=== PATIENT | female | born 2000 | race Caucasian/White ===

== ENCOUNTER 2020-01-14 20:37 | Emergency (ER) | payer OTHER, SELFPAY ==
[~2020-01-14] VITALS: Ht 160 cm; Wt 63.6 kg
[2020-01-14] MEDS ORDERED: birth control tab PO (20:43)
[2020-01-14] MEDS ORDERED: cefTRIAXone SOD 250MG VIAL (J0696 PER 250MG) IM ONE (22:15)
[2020-01-14] MEDS ORDERED: AZITHROMYCIN 250MG TABLET PO ONE (22:15)
[2020-01-14] MEDS ORDERED: DOXYCYCLINE HYCLATE 100MG TABLET PO ONE (22:15)
[2020-01-14] MEDS ORDERED: LIDOCAINE 1% SDV 5ML VIAL As Ordered ONE (22:23)
[2020-01-14] MEDS ORDERED: metroNIDAZOLE (FLAGYL) 500MG TABLET PO ONE (22:30)
[2020-01-14] MEDS ORDERED: DOXY100C37 PO (22:34)
[2020-01-14 23:53] LABS: CHLAMYDIA DNA AMPLIFICATION NEGATIVE (NEGATIVE); GC DNA AMPLIFICATION NEGATIVE (NEGATIVE)
[2020-01-15] VITALS: BP 133/76
[2020-01-16] MEDS ORDERED: CEFD1CAP8 PO (13:14)
[2020-01-16] MEDS ORDERED: NORC1TAB7 PO (13:14)
[2020-01-16] MEDS ORDERED: FLOM0.4C39 PO (13:14)
[2020-01-16] MEDS ORDERED: KETO10TAB PO (13:14)
== END 2020-01-15 00:04 | disposition home or self-care (01) ==
LOC: M ED 20:37
DX: N72 Inflammatory disease of cervix uteri (principal); Z79.3 Long term (current) use of hormonal contraceptives; Z79.899 Other long term (current) drug therapy
CPT/HCPCS: 81001; 87086; 87210; 87661; 96372; 99283; J0696

== ENCOUNTER 2020-01-16 10:09 | Emergency (ER) | payer OTHER ==
[~2020-01-16] VITALS: Ht 160 cm; Wt 68.5 kg
[~2020-01-16 10:09] MED LIST: DOXY100C37 PO; birth control tab PO
[2020-01-16] MEDS ORDERED: KETOROLAC 30 MG/ML 1ML VIAL IV ONE (11:15)
--- NOTE | 2020-01-16 11:48 | REPVR ---
PROCEDURE INFORMATION: Exam: CT Abdomen And Pelvis Without Contrast Exam date and time: 01/16/2020 11:29 AM Age: 19 years old Clinical indication: Abdominal pain; Additional info: Left flank pain, h/o stones TECHNIQUE: Imaging protocol: Computed tomography of the abdomen and pelvis without contrast. Radiation optimization: All CT scans at this facility use at least one of these dose optimization techniques: automated exposure control; mA and/or kV adjustment per patient size (includes targeted exams where dose is matched to clinical indication); or iterative reconstruction. COMPARISON: No relevant prior studies available. FINDINGS: Liver: The liver is slightly enlarged 174 mm. Gallbladder and bile ducts: Normal. No calcified stones. No ductal dilation. Pancreas: Normal. No ductal dilation. Spleen: Normal. No splenomegaly. Adrenals: Normal. No mass. Kidneys and ureters: Subtle areas of increased density are noted within the kidneys near the corticomedullary junctions. This raises the question possible renal tubular acidosis, medullary sponge kidney or a hypercalcemic state. There is no hydronephrosis on the right. There is mild to moderate hydronephrosis on the left. There is a stone noted at the left UVJ measuring 2.5 mm on image 201/126. Stomach and bowel: Unremarkable. No obstruction. No mucosal thickening. Appendix: The appendix is seen appears normal. Intraperitoneal space: Unremarkable. No free air. No significant fluid collection. Vasculature: Unremarkable. No abdominal aortic aneurysm. Lymph nodes: Small mesenteric lymph nodes are seen specifically in the right lower quadrant. Urinary bladder: Unremarkable as visualized. Reproductive: Unremarkable as visualized. Bones/joints: Unremarkable. No acute fracture. Soft tissues: Unremarkable. IMPRESSION: 1. Left UVJ stone with mild to moderate hydronephrosis. 2. Areas of increased density noted within both kidneys near the corticomedullary differentiation. Differential as above. Electronically signed by: Andrew Alexander On 01/16/2020 11:48:16 AM
[2020-01-16] MEDS ORDERED: MORPHINE 2 MG/ML 1ML VIAL (J2270) IV PRN (12:45)
[2020-01-16] MEDS ORDERED: TAMSULOSIN 0.4 MG CAP PO ONE (12:45)
[2020-01-16] MEDS ORDERED: CEFDINIR 300 MG CAP (OMNICEF) PO ONE (13:00)
[2020-01-16] MEDS ORDERED: CEFD1CAP8 PO (13:14)
[2020-01-16] MEDS ORDERED: FLOM0.4C39 PO (13:14)
[2020-01-16] MEDS ORDERED: NORC1TAB7 PO (13:14)
[2020-01-16] MEDS ORDERED: KETO10TAB PO (13:14)
[2020-01-16 13:33] VITALS: BP 112/62
== END 2020-01-16 13:34 | disposition home or self-care (01) ==
LOC: M ED 10:09
DX: N20.1 Calculus of ureter (principal); N13.30 Unspecified hydronephrosis
CPT/HCPCS: 74176; 80047; 81001; 84702; 87086; 96374; 96375; 99284; J1885; J2270

== ENCOUNTER 2021-01-09 15:08 | Emergency (ER) | payer OTHER ==
[~2021-01-09] VITALS: Ht 162.6 cm; Wt 63.0 kg
[~2021-01-09 15:08] MED LIST changes: +CEFD1CAP8 PO; -DOXY100C37 PO; +DOXY1CAP62 PO; +FLOM0.4C39 PO; +KETO10TAB PO; +NORC1TAB7 PO
[2021-01-09 16:39] LABS: BASO % 0.3 % (0.0-1.0); EOS # 0.1 10^3/uL (0.0-0.5); EOS % 0.6 % (0.0-3.0); HEMATOCRIT 41.1 % (36.0-47.0); HEMOGLOBIN 13.6 g/dl (12.0-15.5); MEAN CORPUSCULAR HEMOGLOBIN 29.6 pg (27.0-33.0); MEAN CORPUSCULAR HGB CONC 33.1 g/dl (32.0-36.5); MEAN CORPUSCULAR VOLUME 89.5 fl (80.0-96.0); MONO # 0.5 10^3/uL (0.0-0.8); MONO % 5.5 % (2.0-8.0); NEUTROPHILS # 6.2 10^3/uL (1.5-8.5); NEUTROPHILS % 70.3 % (36.0-66.0); PLATELET COUNT, AUTOMATED 315 10^3/uL (150-450); RED BLOOD COUNT 4.59 10^6/uL (4.00-5.40); WHITE BLOOD COUNT 8.8 10^3/uL (4.0-10.0)
[2021-01-09 17:10] LABS: BLOOD UREA NITROGEN 10 MG/DL (7-18); CARBON DIOXIDE LEVEL 28 MEQ/L (21-32); CHLORIDE LEVEL 108 MEQ/L (98-107); CREATININE FOR GFR 0.74 MG/DL (0.55-1.30); GLOMERULAR FILTRATION RATE > 60.0 (>60); GLUCOSE, FASTING 98 MG/DL (70-100); HCG, SERUM QUANTITATIVE 49 MIU/ML; POTASSIUM SERUM 4.1 MEQ/L (3.5-5.1); SODIUM LEVEL 139 MEQ/L (136-145)
--- NOTE | 2021-01-09 18:58 | REP ---
INDICATION: vaginal bleeding, 8-9 weeks COMPARISON: None. TECHNIQUE: Transabdominal and transvaginal 1st trimester obstetrical ultrasound with color Doppler evaluation FINDINGS: Anteverted uterus measures 8.4 x 4.1 x 5.2 cm. The endometrial complex measures 10 mm thickness. No intrauterine is identified. No pelvic fluid or adnexal mass lesion noted. Bilateral ovaries are normal. Right ovary measures 3.4 x 1.7 x 2.2 cm (RI 0.51). Left ovary measures 3.1 x 1.6 x 1.9 cm (RI 0.62). IMPRESSION: 1. No evidence for intrauterine . No free fluid or adnexal mass lesion. 2. Differential diagnosis includes early and blighted ovum. Less likely ectopic cannot be excluded. 3. Correlation with serial HCG levels and repeat ultrasound as necessary. <Electronically signed by Angel Martin > 01/09/21 [id number]
[2021-01-09 19:26] VITALS: BP 119/63
== END 2021-01-09 19:27 | disposition home or self-care (01) ==
LOC: M ED 15:08
DX: O20.0 Threatened abortion (principal); Z3A.08 8 weeks gestation of pregnancy; Z86.16 Personal history of COVID-19

== ENCOUNTER → 2021-01-11 | Outpatient (CLI) | payer OTHER | LOC: M LAB 13:37 | PROVIDERS: ATTEND Physician Assistant | DX: O20.0 Threatened abortion (principal); O99.891 Other specified diseases and conditions complicating pregnancy; N93.9 Abnormal uterine and vaginal bleeding, unspecified; Z3A.00 Weeks of gestation of pregnancy not specified ==